=== PATIENT | male | born 1990 | race Two or more races ===

== ENCOUNTER 2023-11-02 04:36 | Emergency (ER) | payer MEDICAID ==
[~2023-11-02] VITALS: Ht 180.3 cm; Wt 121.3 kg
[2023-11-02 04:51] VITALS: BP 161/90; PULSE 68; RESP 16; TEMP 98.1; O2SAT 98
[2023-11-02] MEDS ORDERED: CEPH500C PO (07:06)
[2023-11-02] MEDS ORDERED: CLIN1CAP70 PO (07:06)
[2023-11-02] MEDS: cefTRIAXone SOD 1,000 MG VL IM ONE (07:20)
== END 2023-11-02 07:21 | disposition home or self-care (01) ==
LOC: EDBD 04:36 → ER 04:36
DX: S31.21XA Laceration without foreign body of penis, initial encounter (principal); Z79.899 Other long term (current) drug therapy; X58.XXXA Exposure to other specified factors, initial encounter; Y93.89 Activity, other specified; Y92.89 Other specified places as the place of occurrence of the external cause; Y99.8 Other external cause status
CPT/HCPCS: 96372; 99283; J0696